=== PATIENT | female | born 1970 | race Caucasian/White ===

== ENCOUNTER 2018-02-07 17:31 | Observation (INO) | payer OTHER ==
[2018-02-07] MEDS ORDERED: BABY ASPIRIN 81 MG CHEW PO ONE (18:12)
[2018-02-07] MEDS ORDERED: Nitrostat 0.4 MG (ED) SL ONE ×2 (18:12→18:32)
[2018-02-07] MEDS ORDERED: Sodium Chloride 0.9% 1000 ML 1,000 ML IV SCH ×2 (18:15→21:00)
--- NOTE | 2018-02-07 18:21 | ERPHSYRPT ---
- History of Present Illness Time Seen by Provider: 02/07/18 18:00 Historian: patient Patient Subjective Stated Complaint: Chest Pain x1.5 weeks. Triage Nursing Assessment: Pt presents to the ED with complaints of chest pain x1.5 weeks. Pt states she was to have stress test tomorrow for complaint but it was canceled. Pt states movement makes pain worse. No distress noted, skin PWD, pt is A&O x4. Physician History: PATIENT WITH HISTORY OF ANXIETY, AND CHEST PAIN PROGRESSIVE OVER 3 MONTHS, HAS DISCOMFORT SUBSTERNAL AND BELOW LEFT BREAST, ASSOCIATED WITH NUMBNESS OF HER LEFT ARM. HAS PAIN SCALE 6 10, DENIES DIAPHORESIS, PALPITATIONS OR DYSPNEA. Timing/Duration: week(s) Activities at Onset: activity Quality: cramping Location: substernal Chest Pain Radiation: arm (HAS ASSOCIATED ARM NUMBNESS) Severity of Pain-Max: moderate Severity of Pain-Current: mild Modifying Factors: Improves With: exertion Associated Symptoms: other (NUMBNESS ACHING IN LEFT ARM) Prior Chest Pain/Cardiac Workup: angina Nitro Today/Relief: no nitro taken today Aspirin Treatment Today: 81 mg x 4, provided by ED Allergies/Adverse Reactions: cephalexin [From Keflex] Allergy (Mild, Verified 02/07/18 17:52) Nausea and Vomiting Home Medications: ALPRAZolam [Alprazolam] 0.25 mg PO TIDPRN PRN 02/07/18 [History] Amitriptyline HCl 25 mg PO DAILY 02/07/18 [History] Escitalopram Oxalate 10 mg PO DAILY 02/07/18 [History] Metoprolol Succinate 25 mg PO DAILY 02/07/18 [History] Hx Tetanus, Diphtheria Vaccination/Date Given: Yes Hx Influenza Vaccination/Date Given: No Hx Pneumococcal Vaccination/Date Given: No Immunizations Up to Date: No - Review of Systems Constitutional: No Fever, No Chills Eyes: No Symptoms Ears, Nose, & Throat: No Symptoms Respiratory: No Symptoms, No Cough, No Dyspnea Cardiac: Chest Pain, No Edema, No Syncope Abdominal/Gastrointestinal: No Symptoms, No Abdominal Pain, No Nausea, No Vomiting, No Diarrhea Genitourinary Symptoms: No Symptoms, No Dysuria Musculoskeletal: No Symptoms, No Back Pain, No Neck Pain Skin: No Symptoms, No Rash Neurological: No Dizziness, No Focal Weakness, No Sensory Changes Psychological: No Symptoms Endocrine: No Symptoms All Other Systems: Reviewed and Negative - Past Medical History Pertinent Past Medical History: Yes Neurological History: No Pertinent History ENT History: No Pertinent History Cardiac History: Hypertension Respiratory History: No Pertinent History Endocrine Medical History: No Pertinent History Musculoskeletal History: No Pertinent History GI Medical History: No Pertinent History History: No Pertinent History Psycho-Social History: Anxiety, Depression Female Reproductive Disorders: No Pertinent History - Past Surgical History Past Surgical History: Yes Neuro Surgical History: No Pertinent History Cardiac: No Pertinent History Respiratory: No Pertinent History Gastrointestinal: No Pertinent History Genitourinary: No Pertinent History Musculoskeletal: No Pertinent History Female Surgical History: Tubal Ligation - Social History Smoking Status: Current every day smoker How long have you smoked: 15 years Exposure to second hand smoke: Yes Drug Use: none Patient Lives Alone: No - Female History Hx Now: No - Nursing Vital Signs Nursing Vital Signs: Initial Vital Signs Temperature 98.7 F 02/07/18 17:47 Pulse Rate 64 02/07/18 17:47 Respiratory Rate 16 02/07/18 17:47 Blood Pressure 132/77 02/07/18 17:47 O2 Sat by Pulse Oximetry 96 02/07/18 17:47 Pain Scale Pain Intensity 2 - Physical Exam General Appearance: no apparent distress, alert Eye Exam: PERRL/EOMI, eyes nml inspection Ears, Nose, Throat Exam: normal ENT inspection, moist mucous membranes Neck Exam: normal inspection, non-tender, supple, full range of motion Respiratory Exam: normal breath sounds, lungs clear, No respiratory distress Cardiovascular Exam: regular rate/rhythm, normal heart sounds, normal peripheral pulses Gastrointestinal/Abdomen Exam: soft, normal bowel sounds, No tenderness, No mass Back Exam: normal inspection, No CVA tenderness, No vertebral tenderness Extremity Exam: normal inspection, normal range of motion Neurologic Exam: alert, oriented x 3, cooperative, normal mood/affect, sensation nml, No motor deficits Skin Exam: normal color, warm, dry SpO2: 96 Oxygen Delivery: Room Air - Course EKG Interpreted by Me: RATE, Sinus Rhythm, NORMAL AXIS - Radiology Exams Ribs X-ray Interpretation: Interpreted by me, Negative (HYPERINFLATION, NO INFILTRATES) Ordered Tests: Active Orders 24 hr Category Date Time Status Tools Developer STAT Care 02/07/18 18:13 Active EKG-ER Only STAT Care 02/07/18 18:12 Active Oxygen-ED Only NASAL CANNULA 2 lpm Care 02/07/18 18:12 Active CHEST 1 VIEW (PORTABLE) Stat Exams 02/07/18 18:13 Taken CBC W DIFF Stat Lab 02/07/18 18:00 Completed CMP Stat Lab 02/07/18 18:00 Completed PROTIME WITH INR Stat Lab 02/07/18 18:00 Completed TROPONIN Q3H Lab 02/07/18 18:00 Completed TROPONIN Q3H Lab 02/07/18 21:15 Ordered TROPONIN Q3H Lab 02/08/18 00:15 Ordered TROPONIN Q3H Lab 02/08/18 03:15 Ordered TROPONIN Q3H Lab 02/08/18 06:15 Ordered Medication Summary Generic Name Dose Route Start Last Admin Trade Name Freq PRN Reason Stop Dose Admin Sodium Chloride 1,000 mls @ 100 mls/hr 02/07/18 18:15 02/07/18 18:34 Sodium Chloride 0.9% 1000 Ml IV 03/09/18 18:14 100 mls/hr .Q10H GYPSY Administration Discontinued Medications Generic Name Dose Route Start Last Admin Trade Name Freq PRN Reason Stop Dose Admin Aspirin 324 mg 02/07/18 18:12 02/07/18 18:35 Baby Aspirin 81 Mg Chew PO 02/07/18 18:13 324 mg STAT ONE Administration Aspirin Confirm 02/07/18 18:32 Baby Aspirin 81 Mg Chew Administered 02/07/18 18:33 Dose 324 mg .ROUTE .STK-MED ONE Nitroglycerin 0.4 mg 02/07/18 18:12 02/07/18 18:34 Nitrostat 0.4 Mg (Ed) SL 02/07/18 18:13 0.4 mg STAT ONE Administration Nitroglycerin Confirm 02/07/18 18:32 Nitrostat 0.4 Mg (Ed) Administered 02/07/18 18:33 Dose 0.4 mg SL .STK-MED ONE Lab/Rad Data: Laboratory Result Diagrams 02/07/18 18:00 02/07/18 18:00 Laboratory Results 02/07/18 02/07/18 02/07/18 Range/Units 18:00 18:00 18:00 WBC (4.0-10.5) K/mm3 RBC (4.1-5.4) M/mm3 Hgb (12.0-16.0) gm/dl Hct (35-47) % MCV (78-100) fl MCH (26-32) pg MCHC (32-36) g/dl RDW (11.5-14.0) % Plt Count (150-450) K/mm3 MPV (6-9.5) fl Gran % (36.0-66.0) % Eos # (Auto) (0-0.5) Absolute Lymphs (auto) (1.0-4.6) Absolute Monos (auto) (0.0-1.3) Lymphocytes % (24.0-44.0) % Monocytes % (0.0-12.0) % Eosinophils % (0.00-5.0) % Basophils % (0.0-0.4) % Absolute Granulocytes (1.4-6.9) Basophils # (0-0.4) PT 11.4 (9.95-12.35) SECONDS INR 0.98 (0.8-3.0) Sodium 141 (137-145) mmol/L Potassium 3.5 (3.5-5.1) mmol/L Chloride 106 (98-107) mmol/L Carbon Dioxide 24 (22-30) mmol/L Anion Gap 13.6 (5-15) MEQ/L BUN 10 (7-17) mg/dL Creatinine 0.79 (0.52-1.04) mg/dL Estimated GFR > 60.0 ML/MIN Glucose 117 H (74-106) mg/dL Calcium 9.6 (8.4-10.2) mg/dL Total Bilirubin 0.30 (0.2-1.3) mg/dL AST 21 (14-36) U/L ALT 14 (0-35) U/L Alkaline Phosphatase 78 (38-126) U/L Troponin I < 0.012 (0.000-0.034) ng/mL Serum Total Protein 7.3 (6.3-8.2) g/dL Albumin 4.3 (3.5-5.0) g/dL 02/07/18 Range/Units 18:00 WBC 8.4 (4.0-10.5) K/mm3 RBC 4.44 (4.1-5.4) M/mm3 Hgb 14.0 (12.0-16.0) gm/dl Hct 41.5 (35-47) % MCV 93.5 (78-100) fl MCH 31.5 (26-32) pg MCHC 33.7 (32-36) g/dl RDW 13.3 (11.5-14.0) % Plt Count 268 (150-450) K/mm3 MPV 9.7 H (6-9.5) fl Gran % 49.3 (36.0-66.0) % Eos # (Auto) 0.06 (0-0.5) Absolute Lymphs (auto) 3.65 (1.0-4.6) Absolute Monos (auto) 0.51 (0.0-1.3) Lymphocytes % 43.7 (24.0-44.0) % Monocytes % 6.1 (0.0-12.0) % Eosinophils % 0.7 (0.00-5.0) % Basophils % 0.2 (0.0-0.4) % Absolute Granulocytes 4.12 (1.4-6.9) Basophils # 0.02 (0-0.4) PT (9.95-12.35) SECONDS INR (0.8-3.0) Sodium (137-145) mmol/L Potassium (3.5-5.1) mmol/L Chloride (98-107) mmol/L Carbon Dioxide (22-30) mmol/L Anion Gap (5-15) MEQ/L BUN (7-17) mg/dL Creatinine (0.52-1.04) mg/dL Estimated GFR ML/MIN Glucose (74-106) mg/dL Calcium (8.4-10.2) mg/dL Total Bilirubin (0.2-1.3) mg/dL AST (14-36) U/L ALT (0-35) U/L Alkaline Phosphatase (38-126) U/L Troponin I (0.000-0.034) ng/mL Serum Total Protein (6.3-8.2) g/dL Albumin (3.5-5.0) g/dL - Progress Progress: improved Discussed with : Kinsey (DISCUSSED WITH DR REED AT 1730 FOR OBSERVATION) - Departure Time of Disposition: 19:40 Departure Disposition: Observation Clinical Impression: Acute chest pain Condition: Stable Critical Care Time: No Referrals: LIVE REED [Primary Care Provider] -
[2018-02-07 18:22] LABS: BASOPHIL % 0.2 % (0.0-0.4); Basophil (Absolute #) 0.02 (0-0.4); Eosinophil % 0.7 % (0.00-5.0); Eosinophil (Absolute #) 0.06 (0-0.5); Granulocyte Absolute (ANC) 4.12 (1.4-6.9); Granulocytes % 49.3 % (36.0-66.0); Hematocrit 41.5 % (35-47); INR 0.98 (0.8-3.0); Lymphocyte (Absolute #) 3.65 (1.0-4.6); Lymphocytes % 43.7 % (24.0-44.0); Mean Cell Volume 93.5 fl (78-100); Mean Corpuscular Hemoglobin 31.5 pg (26-32); Mean Corpuscular Hgb Concent. 33.7 g/dl (32-36); Mean Platelet Volume 9.7 fl (6-9.5); Monocyte (Absolute #) 0.51 (0.0-1.3); Monocytes % 6.1 % (0.0-12.0); Platelet Count 268 K/mm3 (150-450); Red Blood Count 4.44 M/mm3 (4.1-5.4); Red Cell Distribution Width 13.3 % (11.5-14.0); White Blood Count 8.4 K/mm3 (4.0-10.5)
[2018-02-07 18:29] LABS: ALBUMIN 4.3 g/dL (3.5-5.0); ALKALINE PHOSPHATASE 78 U/L (38-126); ANION GAP 13.6 MEQ/L (5-15); BLOOD UREA NITROGEN 10 mg/dL (7-17); CHLORIDE 106 mmol/L (98-107); Calcium 9.6 mg/dL (8.4-10.2); Carbon Dioxide 24 mmol/L (22-30); Creatinine 1 0.79 mg/dL (0.52-1.04); Glucose 117 mg/dL (74-106); Potassium 3.5 mmol/L (3.5-5.1); SGOT/AST 21 U/L (14-36); SGPT/ALT 14 U/L (0-35); SODIUM 141 mmol/L (137-145); Total Protein 7.3 g/dL (6.3-8.2)
[2018-02-07] MEDS ORDERED: BABY ASPIRIN 81 MG CHEW ONE (18:32)
[2018-02-07] MEDS ORDERED: Sodium Chloride 0.9% 1000 ML 1,000 ML ONE (18:32)
[2018-02-07] MEDS ORDERED: NITRO-BID 2% UD PACKETS TOP ONE (19:30)
[2018-02-07] MEDS ORDERED: MORPHINE SULFATE 2 MG INJ IV PRN ×2 (19:36→20:50)
[2018-02-07] MEDS ORDERED: TYLENOL 325 MG PO PRN ×2 (19:36→20:41)
[2018-02-07] MEDS ORDERED: MILK OF MAGNESIA 30 ML PO PRN ×2 (19:36→20:46)
[2018-02-07] MEDS ORDERED: Zofran 4 MG/2 ML VIAL IV PRN ×2 (19:36→20:56)
[2018-02-07] MEDS ORDERED: MAALOX ES 30 ML UNIT DOSE PO PRN ×2 (19:36→20:45)
[2018-02-07] MEDS ORDERED: Senokot-S Tablet PO PRN ×2 (19:36→20:57)
[2018-02-07] MEDS ORDERED: xanAX 0.25 MG PO PRN (19:41)
[2018-02-07] MEDS ORDERED: Sodium Chloride 0.9% 500 ML 500 ML IV SCH (19:45)
[2018-02-07] MEDS ORDERED: Nitrostat 0.4 MG Tablet SL PRN (20:54)
[2018-02-07] MEDS ORDERED: Lexapro 10 MG PO SCH (22:00)
[2018-02-07] MEDS ORDERED: ELAVIL 25 MG PO SCH ×2 (22:00)
[2018-02-07] MEDS ORDERED: Lopressor 25MG Tab PO SCH (22:00)
[2018-02-07] MEDS ORDERED: xanAX 0.25 MG PO SCH (22:00)
[2018-02-08] MEDS ORDERED: xanAX 0.25 MG PO PRN (07:14)
--- NOTE | 2018-02-08 07:43 | PCM.DCORD ---
- Discharge Discharge Date: 02/08/18 Prescriptions: Continue Metoprolol Succinate 25 mg PO DAILY Escitalopram Oxalate 10 mg PO HS Amitriptyline HCl 25 mg PO HS ALPRAZolam [Alprazolam] 0.25 mg PO TIDPRN PRN PRN Reason: Anxiety Instructions: Chest Pain Follow up with: GALILEA PEREZ [CONSULTING PHYSICIAN] - 1 Week
--- NOTE | 2018-02-08 07:47 | SSS ---
DISCHARGE DIAGNOSES: 1) CHEST WALL PAIN. 2) BRADYCARDIA. 3) ANXIETY. 4) DEPRESSION. HISTORY: The patient is a 47 year-old white female who began complaining of left-sided chest pain while she was up doing dishes yesterday. She presented to the emergency department and subsequently admitted to the hospital for evaluation and management. The patient is a new patient to me, seen a week or two ago. The patient had been complaining of some chest discomfort. At that time we obtained a assistant signal maintainer consultation. The assistant signal maintainer had set up for a stress treadmill exam however the insurance denied it and the patient has not been seen since that time. She was started on aspirin and metoprolol however to protect the heart in the interim. PAST MEDICAL/SURGICAL HISTORY: Significant for anxiety and depression. She has had a tubal ligation. MEDICATIONS: Include Alprazolam 0.25 mg PRN anxiety, amitriptyline 25 mg at night, Lexapro 10 mg a day, metoprolol 25 mg a day. ALLERGIES: KEFLEX. SOCIAL HISTORY: She is a smoker of 15 years. PHYSICAL EXAMINATION: Revealed a thin, white female who appears to be in no distress presently. She does have flat affect. Her vital signs on admission showed a temperature 98.7F, pulse 64, respiratory rate 16, blood pressure 132/77. O2 saturation 96% on room air. HEENT: Normocephalic, atraumatic. Pupils equal round reactive to light. Extraocular movements intact. Oropharynx is pink and moist. NECK: Supple without lymphadenopathy, thyromegaly or JVD. CHEST: Clear to auscultation with good air movement bilaterally. The patient states the pain as being in the left lateral side of her chest and is nontender. There is no rash present. HEART: Regular rate and rhythm without murmurs, rubs or gallops. ABDOMEN: Soft. No palpable masses were felt. EXTREMITIES: Without clubbing, cyanosis or edema. NEUROLOGIC: The patient is alert and oriented x3. LAB DATA AND TESTS: Revealed EKG which reveal sinus bradycardia but otherwise is normal. She has had several troponins all less than 0.012. Her CBC was normal with hemoglobin 14.0, white blood cell count 8,400, PLT count 268,000. She had a metabolic panel showing nonfasting glucose of 117, BUN 10, creatinine 0.79. Electrolytes were normal. Liver enzymes were normal. International normalized ratio of 0.98. HOSPITAL COURSE: The patient was admitted to the [facility] on chest pain protocol essentially just having a dull ache now and appears to be in no distress. She has ruled out for myocardial infarction. We will notify her assistant signal maintainer, Dr. Morales, of her admission to the hospital and discharge after having ruled out for an appointment to see him for further evaluation and risk stratification.
--- NOTE | 2018-02-08 09:12 | XRAY ---
Indication: Chest pain. Comparison: None Portable chest hyperinflated with minimal bibasilar fibrosis/scarring. No focal infiltrate, consolidation, or large effusion. Heart and mediastinal structures within normal limits. Bony thorax intact. Impression: Nonacute hyperinflated chest.
[2018-02-08] MEDS ORDERED: Lexapro 10 MG PO SCH ×2 (10:00→22:00)
[2018-02-08] MEDS ORDERED: Ecotrin 325 MG PO SCH ×2 (10:00)
[2018-02-08] MEDS ORDERED: Toprol-Xl 25MG Tablets PO SCH ×2 (10:00)
[2018-02-08 10:36] VITALS: BP 116/72; PULSE 59; O2SAT 95
== END 2018-02-08 10:50 | disposition home or self-care (01) ==
LOC: ED 17:31 → MED SURG 20:08
PROVIDERS: ADMIT Family Medicine; ATTEND Family Medicine
DX: R07.9 Chest pain, unspecified (principal); R00.1 Bradycardia, unspecified; F41.8 Other specified anxiety disorders; Z79.899 Other long term (current) drug therapy; Z72.0 Tobacco use
CPT/HCPCS: 36415; 71045; 80053; 80061; 83721; 84484; 85025; 85610; 93005; 93041; 93268; 94760; 99285; A9270-GY; G0378

== ENCOUNTER 2018-03-29 20:31 | Emergency (ER) | payer OTHER ==
--- NOTE | 2018-03-29 21:05 | ERPHSYRPT ---
- History of Present Illness Time Seen by Provider: 03/29/18 21:00 Historian: patient Exam Limitations: no limitations Physician History: The patient is a 48-year-old female who had a heart catheterization that was entered to her right groin yesterday and now complains of bruising and pain in the right groin. She was told by her television repair teacher, Dr. Morales, to come to the ER if there was worsening bruising. She called the nurse today who told her that she should be seen if the bruising was moving towards her groin. She denies fever or chills. Her past medical history is significant for chest pain for one month, recent cardiac catheterization, hypertension, and high cholesterol. She tells me that her chest pain for one month as explained to her as being spasming of her cardiac arteries. She also tells me that she had one vessel of her coronary arteries that was 10-20% occluded. Timing/Duration: yesterday, worse Activities at Onset: none Quality: aching Abdominal Pain Onset Location: RLQ (groin) Pain Radiation: no radiation Severity of Pain-Max: mild Severity of Pain-Current: mild Modifying Factors: Improves With: nothing Associated Symptoms: denies symptoms Previous symptoms: no prior history Allergies/Adverse Reactions: cephalexin [From Keflex] Allergy (Mild, Verified 02/07/18 17:52) Nausea and Vomiting Home Medications: ALPRAZolam [Alprazolam] 0.25 mg PO TIDPRN PRN 02/07/18 [History] Amitriptyline HCl 25 mg PO HS 02/07/18 [History] Escitalopram Oxalate 10 mg PO HS 02/07/18 [History] Metoprolol Succinate 25 mg PO DAILY 02/07/18 [History] Hx Tetanus, Diphtheria Vaccination/Date Given: Yes Hx Influenza Vaccination/Date Given: No Hx Pneumococcal Vaccination/Date Given: No - Review of Systems Constitutional: No Fever, No Chills Eyes: No Symptoms Ears, Nose, & Throat: No Symptoms Respiratory: No Cough, No Dyspnea Cardiac: No Chest Pain, No Edema, No Syncope Abdominal/Gastrointestinal: Abdominal Pain (right groin) Genitourinary Symptoms: No Dysuria Musculoskeletal: No Back Pain, No Neck Pain Skin: Other (bruising) Neurological: No Dizziness, No Focal Weakness, No Sensory Changes Psychological: No Symptoms Endocrine: No Symptoms Hematologic/Lymphatic: No Symptoms Immunological/Allergic: No Symptoms All Other Systems: Reviewed and Negative - Past Medical History Pertinent Past Medical History: Yes Neurological History: No Pertinent History ENT History: No Pertinent History Cardiac History: Hypertension Respiratory History: No Pertinent History Endocrine Medical History: No Pertinent History Musculoskeletal History: No Pertinent History GI Medical History: No Pertinent History History: No Pertinent History Psycho-Social History: Anxiety, Depression Female Reproductive Disorders: No Pertinent History - Past Surgical History Past Surgical History: Yes Neuro Surgical History: No Pertinent History Cardiac: No Pertinent History Respiratory: No Pertinent History Gastrointestinal: No Pertinent History Genitourinary: No Pertinent History Musculoskeletal: No Pertinent History Female Surgical History: Tubal Ligation - Social History Smoking Status: Current every day smoker How long have you smoked: 15 years Exposure to second hand smoke: Yes Drug Use: none Patient Lives Alone: No - Physical Exam General Appearance: no apparent distress, alert Eye Exam: PERRL/EOMI, eyes nml inspection Ears, Nose, Throat Exam: normal ENT inspection, pharynx normal, moist mucous membranes Neck Exam: normal inspection, non-tender, supple, full range of motion Respiratory Exam: normal breath sounds, lungs clear, No respiratory distress Cardiovascular Exam: regular rate/rhythm, normal heart sounds Gastrointestinal/Abdomen Exam: soft, No tenderness, No mass Pelvic Exam: not done Rectal Exam: not done Back Exam: normal inspection, normal range of motion, No CVA tenderness, No vertebral tenderness Extremity Exam: normal inspection, normal range of motion, pelvis stable Neurologic Exam: alert, oriented x 3, cooperative, normal mood/affect, nml cerebellar function, sensation nml, No motor deficits Skin Exam: ecchymosis (Examination of the right groin: There are 2 puncture wounds to the right groin. The patient states that the medial puncture wound was unsuccessful. The lateral puncture wound did enter the artery. There is mild tenderness with very mild swelling around the puncture sites. There is bruising more so to the medial aspect of the puncture site. When asked, the patient states that she sleeps on her left side which to me would explain the bruising that is beginning to migrate medially and towards the left side.) SpO2 Interpretation: normal Oxygen Delivery: Room Air - Progress Progress: unchanged Counseled pt/family regarding: diagnosis - Departure Time of Disposition: 21:09 Departure Disposition: Home Clinical Impression: Bruising Condition: Stable Critical Care Time: No Referrals: LIVE REED [Primary Care Provider] - Additional Instructions: You have the usual amount of bruising at the site of the cardiac catheterization at your right groin.
[2018-03-29 21:25] VITALS: BP 129/74; PULSE 66; O2SAT 97
== END 2018-03-29 21:30 | disposition home or self-care (01) ==
LOC: ED 20:31
DX: S30.1XXA Contusion of abdominal wall, initial encounter (principal); R10.31 Right lower quadrant pain; Z98.890 Other specified postprocedural states; Z79.899 Other long term (current) drug therapy
CPT/HCPCS: 99283

== ENCOUNTER 2018-05-25 16:32 | Emergency (ER) | payer OTHER ==
--- NOTE | 2018-05-25 17:05 | ERPHSYRPT ---
- History of Present Illness Time Seen by Provider: 05/25/18 16:53 Source: patient Exam Limitations: no limitations Physician History: The patient is a 48-year-old female who complains of stubbing her right little toe on would this morning at 6 AM. Her toe has continued to hurt more throughout the day. She was at work all day on her feet. She was not able to ice it. She took 2 ibuprofen 5 hours ago. The toe is swollen and bruised now. Her past medical history is significant for stable angina and high cholesterol. Method of Injury: direct blow Occurred: this morning Quality: constant, aching, throbbing Severity of Pain-Max: moderate Severity of Pain-Current: moderate Lower Extremities Pain: 5th toe: right Modifying Factors: Improves With: pain medication (ibuprofen) Associated Symptoms: none Allergies/Adverse Reactions: cephalexin [From Keflex] Allergy (Mild, Verified 05/25/18 16:44) Nausea and Vomiting egg Allergy (Verified 05/25/18 16:46) Home Medications: ALPRAZolam [Alprazolam] 0.25 mg PO TIDPRN PRN 02/07/18 [History] Amitriptyline HCl 25 mg PO HS 02/07/18 [History] Escitalopram Oxalate 10 mg PO HS 02/07/18 [History] Hx Tetanus, Diphtheria Vaccination/Date Given: Yes Hx Influenza Vaccination/Date Given: No Hx Pneumococcal Vaccination/Date Given: No - Review of Systems Constitutional: No Fever, No Chills Eyes: No Symptoms Ears, Nose, & Throat: No Symptoms Respiratory: No Cough, No Dyspnea Cardiac: No Chest Pain, No Edema, No Syncope Abdominal/Gastrointestinal: No Abdominal Pain, No Nausea, No Vomiting, No Diarrhea Genitourinary Symptoms: No Dysuria Musculoskeletal: Injury, Joint Pain, Joint Swelling Skin: No Symptoms Neurological: No Dizziness, No Focal Weakness, No Sensory Changes Psychological: No Symptoms Endocrine: No Symptoms Hematologic/Lymphatic: No Symptoms Immunological/Allergic: No Symptoms All Other Systems: Reviewed and Negative - Past Medical History Pertinent Past Medical History: Yes Neurological History: No Pertinent History ENT History: No Pertinent History Cardiac History: Angina, High Cholesterol Respiratory History: No Pertinent History Endocrine Medical History: No Pertinent History Musculoskeletal History: No Pertinent History GI Medical History: No Pertinent History History: No Pertinent History Psycho-Social History: Anxiety, Depression Female Reproductive Disorders: No Pertinent History - Past Surgical History Past Surgical History: Yes Neuro Surgical History: No Pertinent History Cardiac: No Pertinent History Respiratory: No Pertinent History Gastrointestinal: No Pertinent History Genitourinary: No Pertinent History Musculoskeletal: No Pertinent History Female Surgical History: Tubal Ligation - Social History Smoking Status: Current every day smoker How long have you smoked: 15 years Exposure to second hand smoke: Yes Drug Use: none Patient Lives Alone: No - Nursing Vital Signs Nursing Vital Signs: Initial Vital Signs Temperature 97.2 F 05/25/18 16:56 Pulse Rate 78 05/25/18 16:56 Respiratory Rate 16 05/25/18 16:56 Blood Pressure 127/84 05/25/18 16:56 O2 Sat by Pulse Oximetry 97 05/25/18 16:56 Pain Scale Pain Intensity 3 - Physical Exam General Appearance: alert Eyes, Ears, Nose, Throat Exam: moist mucous membranes Neck Exam: non-tender, supple Cardiovascular/Respiratory Exam: chest non-tender, normal breath sounds, regular rate/rhythm, no respiratory distress Gastrointestinal/Abdominal Exam: non-tender, guarding Back Exam: normal inspection, No vertebral tenderness Hips Exam: bilateral: normal inspection Legs Exam: bilateral leg: normal inspection Knees Exam: bilateral knee: normal inspection Ankle Exam: bilateral ankle: normal inspection Foot Exam: right foot: ecchymosis (little toe), limited range of motion (little toe), pain (little toe), swelling (little toe), left foot: normal inspection Neuro/Tendon Exam: normal sensation, normal motor functions Mental Status Exam: alert, oriented x 3, cooperative Skin Exam: normal color, warm, dry SpO2 Interpretation: normal Oxygen Delivery: Room Air - Radiology Exams Right Foot X-ray Interpretation: Interpreted by me, Negative, No Fracture, No Subluxation Ordered Tests: Active Orders 24 hr Category Date Time Status Cold Application STAT Care 05/25/18 17:09 Active FOOT (MINIMUM 3 VIEWS) Stat Exams 05/25/18 17:09 Taken Medication Summary Discontinued Medications Generic Name Dose Route Start Last Admin Trade Name Freq PRN Reason Stop Dose Admin Ketorolac Tromethamine 60 mg 05/25/18 17:08 05/25/18 17:19 Toradol 30 Mg Injection IM 05/25/18 17:09 60 mg STAT ONE Administration Ketorolac Tromethamine Confirm 10/13/18 17:14 Toradol 30 Mg Injection Administered 05/25/18 17:15 Dose 60 mg .ROUTE .STK-MED ONE - Progress Progress: improved Counseled pt/family regarding: rad results - Departure Time of Disposition: 17:29 Departure Disposition: Home Clinical Impression: Contusion of fifth toe, right Condition: Stable Critical Care Time: No Referrals: LIVE REED [Primary Care Provider] - Additional Instructions: You have a contusion to your right little toe. You have no broken bones. You were given Toradol 60 mg by IM in the ER. Apply ice to the toe as often as needed. Elevate your foot. Take ibuprofen 800 mg every 8 hours as needed and take Tylenol 1000 mg every 8 hours as needed. Follow-up with your primary medical doctor as needed.
[2018-05-25] MEDS ORDERED: TORAdol 30 mg Injection IM ONE (17:08)
[2018-05-25] MEDS ORDERED: TORAdol 30 mg Injection ONE (17:14)
[2018-05-25 17:23] VITALS: PULSE 68; O2SAT 96
[2018-05-25 17:42] VITALS: BP 126/73
--- NOTE | 2018-05-25 19:44 | XRAY ---
Indication: Pain and swelling following injury. Comparison: None 3 nonweightbearing views of the right foot obtained. No bony, articular, or soft tissue abnormalities.
== END 2018-05-25 17:42 | disposition home or self-care (01) ==
LOC: ED 16:32
DX: S90.121A Contusion of right lesser toe(s) without damage to nail, initial encounter (principal); W22.8XXA Striking against or struck by other objects, initial encounter; Z79.899 Other long term (current) drug therapy
CPT/HCPCS: 73630; 96372; 99284; J1885

== ENCOUNTER 2022-02-16 18:43 | Emergency (ER) | payer OTHER ==
[2022-02-16] MEDS ORDERED: TORAdol 30 mg Injection IV ONE (19:37)
[2022-02-16] MEDS ORDERED: TORAdol 30 mg Injection IM ONE (19:40)
[2022-02-16] MEDS ORDERED: TORAdol 30 mg Injection ONE (19:40)
--- NOTE | 2022-02-16 19:44 | ERPHSYRPT ---
- History of Present Illness Time Seen by Provider: 02/16/22 18:55 Source: patient Exam Limitations: no limitations Patient Subjective Stated Complaint: Knee pain Triage Nursing Assessment: Patient ambulated back to ED and transferred self to bed. Patient A+O X 3. Patient's skin pink, warm and dry. Patient complains of right knee pain that goes down leg 5/10. Patient states she was moving a dresser and hit her right knee this afternoon. No bruising or swelling noted. Physician History: Patient is a 51-year-old female presents to emergency department for evaluation of pain to her right knee and right leg. Patient states she was at home moving a dresser using her involved the knee. Patient felt a pop on the lateral aspect of her right knee. Injury occurred this afternoon. Patient immediately felt a dull pain. Pain described as an ache that is localized. No radiation. Pain reproduced upon weightbearing and ambulation. Pain improved with rest. No other injuries reported. No back pain. No hip pain. No foot or ankle pain. No BHT or LOC. No neck pain. Cervical spine cleared clinically. Patient otherwise healthy. She voices no other complaints or concerns at this time. Method of Injury: direct blow Occurred: this afternoon Quality: constant Severity of Pain-Max: moderate Severity of Pain-Current: mild Lower Extremities Pain: knee: right Modifying Factors: Improves With: movement (Movement weightbearing and palpation reproduce symptoms.) Associated Symptoms: none ( No associated symptoms) Allergies/Adverse Reactions: cephalexin [From Keflex] Allergy (Mild, Verified 02/16/22 18:47) Nausea and Vomiting egg Allergy (Verified 02/16/22 18:47) Home Medications: ALPRAZolam [Alprazolam] 0.25 mg PO TIDPRN PRN 02/07/18 [History] Amitriptyline HCl 25 mg PO HS 02/07/18 [History] Escitalopram Oxalate 10 mg PO HS 02/07/18 [History] Diltiazem HCl [Cardizem] 1 tab PO DAILY 02/16/22 [History] Hx Tetanus, Diphtheria Vaccination/Date Given: Yes Hx Influenza Vaccination/Date Given: No Hx Pneumococcal Vaccination/Date Given: No Immunizations Up to Date: Yes Travel Risk - International Travel Have you traveled outside of the country in past 3 weeks: No - Coronavirus Screening Are you exhibiting any of the following symptoms?: No Close contact with a COVID-19 positive Pt in past 14-21 Days: No - Vaccine Status Have you recieved a Covid-19 vaccination: Yes [employer]: Moderna - Vaccination Dates Date of 2cond Vaccination (if applicable): na - Review of Systems Constitutional: No Symptoms, No Fever, No Chills Eyes: No Symptoms Ears, Nose, & Throat: No Symptoms Respiratory: No Symptoms, No Cough, No Dyspnea Cardiac: No Symptoms, No Chest Pain, No Edema, No Syncope Abdominal/Gastrointestinal: No Symptoms, No Abdominal Pain, No Nausea, No Vomiting, No Diarrhea Genitourinary Symptoms: No Symptoms, No Dysuria Musculoskeletal: No Symptoms, No Back Pain, No Neck Pain Skin: No Symptoms, No Rash Neurological: No Symptoms, No Dizziness, No Focal Weakness, No Sensory Changes Psychological: No Symptoms Endocrine: No Symptoms Hematologic/Lymphatic: No Symptoms Immunological/Allergic: No Symptoms All Other Systems: Reviewed and Negative - Past Medical History Pertinent Past Medical History: Yes Neurological History: No Pertinent History ENT History: No Pertinent History Cardiac History: Angina, High Cholesterol Respiratory History: No Pertinent History Endocrine Medical History: No Pertinent History Musculoskeletal History: No Pertinent History GI Medical History: No Pertinent History History: No Pertinent History Psycho-Social History: Anxiety, Depression Female Reproductive Disorders: No Pertinent History - Past Surgical History Past Surgical History: Yes Neuro Surgical History: No Pertinent History Cardiac: No Pertinent History Respiratory: No Pertinent History Gastrointestinal: No Pertinent History Genitourinary: No Pertinent History Musculoskeletal: No Pertinent History Female Surgical History: Tubal Ligation - Social History Smoking Status: Current every day smoker How long have you smoked: 15 years Exposure to second hand smoke: No Drug Use: none Patient Lives Alone: No - Nursing Vital Signs Nursing Vital Signs: Initial Vital Signs Temperature 97.9 F 02/16/22 18:48 Pulse Rate 74 02/16/22 18:48 Respiratory Rate 16 02/16/22 18:48 Blood Pressure 154/86 02/16/22 18:48 O2 Sat by Pulse Oximetry 97 02/16/22 18:48 Pain Scale Pain Intensity 5 - Physical Exam General Appearance: no apparent distress, alert Eyes, Ears, Nose, Throat Exam: normal ENT inspection, pharynx normal, moist mucous membranes, No dry mucous membranes, No pharyngeal erythema Neck Exam: normal inspection, non-tender, supple, full range of motion Cardiovascular/Respiratory Exam: chest non-tender, normal breath sounds, regular rate/rhythm, no respiratory distress Gastrointestinal/Abdominal Exam: non-tender, guarding Back Exam: normal inspection, normal range of motion, No vertebral tenderness Hips Exam: bilateral: non-tender, normal inspection, normal range of motion, no evidence of injury, bone tenderness Legs Exam: right leg: pain (Tenderness along the tibialis anterior muscle on the right. Overlying soft tissue intact. Compartments are soft. Cap refill less than 2 seconds. PT DP pulse palpable.), soft tissue tenderness, other (No swelling no numbness tingling or weakness), left leg: non-tender, normal inspection, normal range of motion, no evidence of injury Knees Exam: right knee: other (Bony tenderness along the lateral aspect of the right knee. Overlying soft tissue intact. No signs of trauma. Extremity neurovascular intact distally.), left knee: non-tender, normal inspection, normal range of motion, no evidence of injury Foot Exam: bilateral foot: non-tender, normal inspection, normal range of motion, no evidence of injury Neuro/Tendon Exam: normal sensation, normal motor functions Mental Status Exam: alert, oriented x 3, cooperative Skin Exam: normal color, warm, dry SpO2 Interpretation: normal SpO2: 97 O2 Delivery: Room Air - Course Nursing assessment & vital signs reviewed: Yes - Radiology Exams Knee X-ray Interpretation: Interpreted by me (No fracture dislocations. No soft tissue abnormalities) Lower Leg X-ray Interpretation: Interpreted by me (No fractures or dislocations. No soft tissue abnormalities) Ordered Tests: Active Orders 24 hr Category Date Time Status KNEE (3 VIEWS) Stat Exams 02/16/22 19:09 Taken LOWER LEG Stat Exams 02/16/22 19:09 Taken Medication Summary Generic Name Dose Route Start Last Admin Trade Name Freq PRN Reason Stop Dose Admin Ketorolac Tromethamine 30 mg 02/16/22 19:37 Ketorolac Tromethamine 30 Mg/Ml Inj IV 02/16/22 19:38 STAT ONE - Progress Progress: improved Progress Note: Patient presents to our ED with right knee pain. Patient injured her knee while moving a dresser. X-rays of right knee and right leg negative for fracture dislocation. No soft tissue abnormalities. Patient has tenderness along the lateral aspect of the right knee and right tibialis anterior. Likely muscle strain as well as knee contusion. Patient provided bilateral axillary crutches to rest her right knee. Patient is aware that x-rays reveal bony tissue. X- rays are not ideal for soft tissue analysis. Patient understand that if pain continues after 1 week of rest she is to obtain further imaging studies. Raul wrap applied. Patient received Toradol IM for pain control. All questions answered. Patient voices no other complaints or concerns at this time. She agrees to follow-up with primary care doctor within 48 hours for evaluation. Portions of this note were created with voice recognition technology. There may be grammatical, spelling, punctuation or sound alike errors 02/16/22 19:45 Counseled pt/family regarding: diagnosis, need for follow-up, rad results - Departure Departure Disposition: Home Clinical Impression: Knee contusion, Muscle strain Condition: Stable Critical Care Time: No Referrals: [facility] [Primary Care Provider] - Follow up/PCP as directed Additional Instructions: Discharge/Care Plan HELIOJONATAN MEDRANO was seen on 02/16/22 in the Emergency Room. The patient was counseled regarding Diagnosis,Lab results, Imaging studies, need for follow up and when to return to the Emergency Room. Prescriptions given: Discharge Note I have spoken with the patient and/or caregivers. I have explained the patient's condition, diagnosis and treatment plan based on the information available to me at this time. I have answered the patient's and/or caregiver's questions and addressed any concerns. The patient and/or caregivers have as good understanding of the patient's diagnosis, condition and treatment plan as can be expected at this point. The vital signs have been stable. The patient's condition is stable and appropriate for discharge from the emergency department. The patient will pursue further outpatient evaluation with the primary care physician or other designated or consulting physician as outlined in the discharge instructions. The patient and/or caregivers are agreeable to this plan of care and follow-up instructions have been explained in detail. The patient and/or caregivers have received these instruction. The patient/and or caregivers are aware that any significant change in condition or worsening of symptoms should prompt an immediate return to this or the closest emergency department or call 911.
[2022-02-16 19:47] VITALS: BP 119/81; PULSE 80; O2SAT 97
--- NOTE | 2022-02-17 08:48 | XRAY ---
Indication: Pain following trauma. Comparison: None 3 view right knee demonstrates mild osteopenia. No other bony, articular, or soft tissue abnormalities.
--- NOTE | 2022-02-17 08:48 | XRAY ---
Indication: Pain following trauma. Comparison: None 2 view right lower leg demonstrates mild osteopenia. No other bony, articular, or soft tissue abnormalities.
== END 2022-02-16 19:54 | disposition home or self-care (01) ==
LOC: ED 18:43
DX: S86.211A Strain of muscle(s) and tendon(s) of anterior muscle group at lower leg level, right leg, initial encounter (principal); S80.01XA Contusion of right knee, initial encounter; W22.03XA Walked into furniture, initial encounter; M25.561 Pain in right knee; M79.604 Pain in right leg; E78.5 Hyperlipidemia, unspecified; Z72.0 Tobacco use; Z79.899 Other long term (current) drug therapy
CPT/HCPCS: 73562; 73590; 96372; 99283; J1885